=== PATIENT | male | born 1990 | race Caucasian/White ===

== ENCOUNTER 2021-06-19 14:48 | Emergency (ER) | payer BC ==
[~2021-06-19] VITALS: Ht 175.3 cm; Wt 75.3 kg
[2021-06-19] MEDS ORDERED: NAPR500T14 (14:58)
[2021-06-19] MEDS ORDERED: BACLOFEN10 MG (14:58)
[2021-06-19] MEDS ORDERED: PANTOPRAZOLE SO40 M2 (14:58)
[2021-06-19] MEDS ORDERED: TREXIMET 85-501 EACH PO (18:07)
== END 2021-06-19 18:29 | disposition home or self-care (01) ==
LOC: ER 14:48
DX: G44.89 Other headache syndrome (principal)